=== PATIENT | male | born 1945 | race Hispanic/Latino ===

== ENCOUNTER → 2023-08-26 | Day surgery (SDC) | payer MEDICARE ==
[~2023-08-26] MED LIST: BEET ROOT-TART1 EACH PO; COQ-10100 MG PO; FENTANYL CITRATE/PF 100MCG/2 ML INJ ONE; LACTATED RINGER'S 1,000 ML ONE; MAGNESIUM PO; MIDAZOLAM HCL 2 MG/2 ML VIAL ONE; OR PHACO EYE KIT ONE; PREOP PHACO EYE KIT ONE
[2023-08-26 12:48] VITALS: TEMP 97
[2023-08-26 13:00] VITALS: BP 138/82; PULSE 62; RESP 15; O2SAT 97
== END | disposition home or self-care (01) ==
LOC: OR 09:54
PROVIDERS: ATTEND Ophthalmology
DX: H25.12 Age-related nuclear cataract, left eye (principal); K57.90 Diverticulosis of intestine, part unspecified, without perforation or abscess without bleeding; Z87.442 Personal history of urinary calculi
CPT/HCPCS: 66984; J2250; J3010; J7121